=== PATIENT | male | born 1965 | race African-American/Black ===

== ENCOUNTER 2020-10-24 12:15 | Emergency (ER) | payer SELFPAY ==
[~2020-10-24] VITALS: Ht 185.4 cm; Wt 97.5 kg
[2020-10-24 12:42] VITALS: BP 137/88
--- NOTE | 2020-10-24 12:55 | NUR ---
ED Nurse Note: ERMD at bedside.
--- NOTE | 2020-10-24 13:03 | NUR ---
ED Nurse Note: PT. IS AAOX4. AMBULATORY. PT. WALKED IN TO ER FROM HOME DUE TO LOWER BACK PAIN SINCE 2019. NO RECENT FALL. DENIES URINARY PROBLEMS
[2020-10-24] MEDS: Acetaminophen 500mg (ES) tab ORAL ONE (13:17)
[2020-10-24] MEDS: Methocarbamol 750mg tab ORAL ONE (13:17)
[2020-10-24] MEDS ORDERED: ROBAXIN-750750 MG PO (13:21)
[2020-10-24] MEDS ORDERED: IBUPROFEN600 M1 ORAL (13:21)
[2020-10-24] MEDS ORDERED: LIDODERM700 M1 TOPIC (13:21)
[2020-10-24 13:34] VITALS: BP 134/85
--- NOTE | 2020-10-24 13:34 | NUR ---
ER DISCHARGE NOTE: Patient is cleared to be discharged per ERMD, pt is aox4, on room air, with stable vital signs. pt was given dc and prescription instructions, pt was able to verbalize understanding, pt id band removed. pt is able to ambulate with steady gait. pt took all belongings.
--- NOTE | 2020-10-25 09:49 | Emergency Room Report ---
History of Present Illness General Chief Complaint: Back Pain-No Injury Source: Patient Present Illness HPI 54-year-old male presents for evaluation. Complaining of pain to his lower back nearly 1 month. 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 Pain is throbbing, 7 out of 10, radiating down the right leg. Denies any other injuries. No other aggravating relieving factors. Denies any other associated symptoms Allergies: Coded Allergies: No Known Allergies (Unverified , 10/24/20) COVID-19 Screening Contact w/high risk pt: No Experienced COVID-19 symptoms?: No COVID-19 Testing performed [employer]: No Patient History Past Medical History: none Past Surgical History: none Pertinent Family History: none Social History: Denies: smoking, alcohol use, drug use Immunizations: UTD Reviewed Nursing Documentation: PMH: Agreed; PSxH: Agreed Nursing Documentation-PMH Past Medical History: No Stated History Review of Systems All Other Systems: negative except mentioned in HPI Physical Exam Vital Signs Date Time Temp Pulse Resp B/P (MAP) Pulse Ox O2 Delivery O2 Flow Rate FiO2 10/24/20 12:42 98.2 71 17 137/88 95 Room Air Sp02 EP Interpretation: reviewed, normal General Appearance: no apparent distress, alert, GCS 15, non-toxic Head: normocephalic, atraumatic Eyes: bilateral eye normal inspection, bilateral eye PERRL ENT: hearing grossly normal, normal pharynx, no angioedema, normal voice Neck: full range of motion, supple/symm/no masses Respiratory: chest non-tender, lungs clear, normal breath sounds, speaking full sentences Cardiovascular #1: regular rate, rhythm, no edema Cardiovascular #2: 2+ carotid (R), 2+ carotid (L), 2+ radial (R), 2+ radial (L), 2+ dorsalis pedis (R), 2+ dorsalis pedis (L) Gastrointestinal: normal bowel sounds, non tender, soft, non-distended, no guarding, no rebound Rectal: deferred Genitourinary: normal inspection, no CVA tenderness, no vertebral tenderness Musculoskeletal: back normal, normal range of motion, gait/station normal, tender - Paraspinal lumbar tenderness Neurologic: alert, motor strength/tone normal, oriented x3, sensory intact, responsive, speech normal Psychiatric: judgement/insight normal, memory normal, mood/affect normal, no suicidal/homicidal ideation Reflexes: 3+ bicep (R), 3+ bicep (L), 3+ tricep (R), 3+ tricep (L), 3+ knee (R), 3+ knee (L) Lymphatic: no adenopathy Medical Decision Making Diagnostic Impression: Primary Impression: Back pain Qualified Codes: M54.41 - Lumbago with sciatica, right side ER Course Hospital Course 54-year-old male presents with lower back pain Differential diagnoses include: pyelonephritis, kidney stone, muscle strain, Lspine fracture Clinical course Patient placed on stretcher. After initial history physical exam reveals middle-age male in no acute distress. There is no vertebral tenderness. There is pain to the right lower back through the buttock. Straight leg raise negative. No sensory deficits. 5 out of 5 strength in lower extremities. I discussed findings with patient. Likely muscular due to strenuous activity at work. We will attempt therapy with anti-inflammatories, muscle relaxers, Lidoderm patch. Started in ED. Safe for discharge close outpatient follow-up. I will provide referrals Diagnosis - back pain Stable and discharged to home with prescription for Motrin, Robaxin, lidoderm. Followup with PMD. Return to ED if symptoms recur or worsen Last Vital Signs Date Time Temp Pulse Resp B/P (MAP) Pulse Ox O2 Delivery O2 Flow Rate FiO2 10/24/20 13:34 98.2 72 18 134/85 99 Room Air Status: improved Disposition: HOME, SELF-CARE Condition: Stable Scripts Lidocaine Patch* (Lidoderm Patch*) 1 Each Adh..patch 1 PATCH TOPIC DAILY, #7 PATCH 0 Refills Patch(es) may remain in place for up to 12 hours in any 24-hour period. Prov: Alex Knox MD 10/24/20 Methocarbamol* (ROBAXIN-750*) 750 Mg Tablet 750 MG PO TID, #21 TAB 0 Refills Prov: Alex Knox MD 10/24/20 Ibuprofen* (MOTRIN*) 600 Mg Tablet 600 MG ORAL Q8H PRN for FOR PAIN, #30 TAB 0 Refills Prov: Alex Knox MD 10/24/20 Referrals: NOT CHOSEN [facility]/,REFERRING ([facility]P) [facility] Open 24 hour /7 days a week by Appointment Only [id number] [facility] [id number] Patient Instructions: Back Pain, Adult Alex Knox MD Oct 25, 2020 09:49
== END 2020-10-24 13:34 | disposition home or self-care (01) ==
LOC: EMR 13:30
DX: M54.41 Lumbago with sciatica, right side (principal)
CPT/HCPCS: 99282